=== PATIENT | female | born 1990 | race American Indian/Alaskan Native ===

== ENCOUNTER 2018-10-10 12:47 | Emergency (ER) | payer OTHER ==
[2018-10-10 13:07] VITALS: BMI 22.9
[2018-10-10 13:33] LABS: SQUAMOUS EPITHIAL 9 /hpf (0-5); URINE BACTERIA FEW (<OCC); URINE BILIRUBIN NEGATIVE (NEGATIVE); URINE BLOOD NEGATIVE (NEGATIVE); URINE CLARITY Hazy (Clear); URINE COLOR Yellow (YELLOW); URINE GLUCOSE (UA) NORMAL (Normal); URINE LEUKOCYTE ESTERASE 1+ Leu/uL (Negative); URINE PROTEIN NEGATIVE (NEGATIVE); URINE UROBILINOGEN NORMAL mg/dL (0.2-1.0)
--- NOTE | 2018-10-10 14:12 | OBHP ---
Datetime: 10/10/2018 13:10 IP Adm Impression: , intrauterine ; No Active Labor IP Chief Complaint Other: Decreased movement IP Admit Plan: Discharge home Admit Comment, IP Provider: This is a private patient of Dr. Noreen Whipple 28 y.o. , LMP 05/18/18, ELLE 02/22/19, EGA 20w 6d c/o 1 month long intermittent lower abdominal pressure, and occ pain, maximum pain scale 6/10. Advised to take tyleno by PMD and to observe; has no t done so. Not yet experienced quickening. Denies LOF, or VB. Last had sexual intercourse 2 ni ghts ago. Denies dysuria or urinary frequency care: Dr. Whipple; last visit 10/04; next appointment 10/18. Most recent ultrasound last week "they did the first part. 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 06/2018. Currently unemployed. Fam Hx: Mother alive 50s - no med issues. Father 60s - HTN. P.E.: as above. WD in NAD. Awake, alert, oriented to time, person and place. Pleasant and cooperat дмитрий Assessment: 28 y.o. P0, 20w 6d. D/W patient and all of the above is within normal limits. Advised and encouraged to take tylenol as needed; and to ensure consuming half her weight in ounces o f water daily. Patient expressed an understanidng and agrees. Patient is clinically stable. Plan: 1) U/A - a per, and discussed with, Dr. Whipple Addendum: U/A: leuk esterse 1+; S.G. 1.008, pH 7.0, hazy Assessment: Early UTI. This d/w patient; along with prescription; along with adding a glass of cr anberry juice daily. Plan: 1) Rx: macroBID 100 mg 1 tab po BID x 7 days 2) Keep all scheduled appointments 3) Discharge home - as per, and discussed with, Dr. Whipple Pelvic Type - PN: Adequate Extremities - PN: Normal Abdomen - PN: Normal Back - PN: Normal Breast - PN: Not Done Lungs - PN: Normal Heart - PN: Normal Thyroid - PN: Not Done Neurologic - PN: Normal HEENT - PN: Normal General - PN: Normal IP Fetus A Comments: FHR auscultated at 160 bpm - acknowledged by patient and Contraction Comments Provider: none Comments, ACOG Physical Exam: Abdomen: gravid. Soft, non tender in all quadrants. Fundus at umbilicu s; non tender All other systems reviewed and are negative IP Chief Complaint: Maternal discomfort Dilatation, Provider: 0 Effacement, Provider: 0 Station, Provider: n/a Genitourinary Exam: Normal DTRs - PN: Not Done
[2018-10-10 18:21] VITALS: BP 129/80; PULSE 98; TEMP 98.5
== END 2018-10-10 14:17 | disposition home or self-care (01) ==
LOC: C.EROB 12:47
DX: O23.42 Unspecified infection of urinary tract in pregnancy, second trimester (principal); Z3A.20 20 weeks gestation of pregnancy